=== PATIENT | female | born 1980 | race Caucasian/White ===

== ENCOUNTER → 2021-11-13 | Outpatient (CLI) | payer BC ==
--- NOTE | 2021-11-13 15:07 | Diagnostic Imaging Report ---
PROCEDURE: Pelvic complete, transabdominal and transvaginal sonogram. Limited pelvic Doppler. TECHNIQUE: Multiple real-time grayscale images were obtained of the pelvis in various projections, transabdominally and transvaginally. Limited pelvic duplex images were obtained. HISTORY: Pelvic pain. COMPARISON: None available. FINDINGS: Uterus: The uterus is anteverted and measures 7.8 x 4.8 x 4.8 cm. There is a 3.2 cm subserosal uterine fibroid. Endometrium: The endometrium is normal in thickness and measures 0.7 cm. There is no fluid within the endometrial cavity. Adnexa: Both ovaries have a normal physiologic appearance. The right ovary measures 3.1 x 1.8 x 1.9 cm and the left ovary measures 2.2 x 2.3 x 2.9 cm. Duplex images reveal normal vascular flow to both ovaries. Other: There is no free fluid within the pelvis. IMPRESSION: 3.2 cm subserosal uterine fibroid. Otherwise unremarkable pelvic ultrasound. Dictated by: Dictated on workstation # [id number]
== END ==
LOC: RAD 12:47
PROVIDERS: ATTEND Obstetrics & Gynecology
DX: D25.2 Subserosal leiomyoma of uterus (principal)
CPT/HCPCS: 76830; 76856